=== PATIENT | male | born 1960 | race Caucasian/White ===

== ENCOUNTER 2017-02-02 09:54 | Emergency (ER) | payer OTHER ==
[~2017-02-02] VITALS: Ht 175.3 cm; Wt 108.9 kg
[~2017-02-02 09:54] MED LIST: BACTROBAN2% TP; CLINDAMYCIN HC300 MG PO; HIBICLENS118 ML TOP; LAC PO; PERIOGARD473 ML PO
[2017-02-02 11:30] VITALS: BP 144/86
== END 2017-02-02 11:39 | disposition other institution (70) ==
LOC: ED 09:54
DX: Z02.89 Encounter for other administrative examinations (principal); M79.1 Myalgia; E11.9 Type 2 diabetes mellitus without complications; I10 Essential (primary) hypertension; F19.90 Other psychoactive substance use, unspecified, uncomplicated; I73.9 Peripheral vascular disease, unspecified; M19.90 Unspecified osteoarthritis, unspecified site; F17.210 Nicotine dependence, cigarettes, uncomplicated; Z71.6 Tobacco abuse counseling
CPT/HCPCS: 99406

== ENCOUNTER 2017-02-02 09:54 | Emergency (ER) | payer OTHER | END 2017-02-02 11:39 | disposition other institution (70) | LOC: ED 09:54 | DX: Z02.89 Encounter for other administrative examinations (principal); I10 Essential (primary) hypertension; M79.1 Myalgia; F19.90 Other psychoactive substance use, unspecified, uncomplicated; M19.90 Unspecified osteoarthritis, unspecified site; E11.9 Type 2 diabetes mellitus without complications; I73.9 Peripheral vascular disease, unspecified; F17.210 Nicotine dependence, cigarettes, uncomplicated; Z71.6 Tobacco abuse counseling ==

== ENCOUNTER 2017-06-24 00:11 | Emergency (ER) | payer OTHER ==
[~2017-06-24] VITALS: Ht 172.7 cm; Wt 99.8 kg
[2017-06-24 00:40] VITALS: BP 152/92
== END 2017-06-24 00:40 | disposition other institution (70) ==
LOC: ED 00:11
DX: Z02.89 Encounter for other administrative examinations (principal); I10 Essential (primary) hypertension; E11.9 Type 2 diabetes mellitus without complications; M19.90 Unspecified osteoarthritis, unspecified site

== ENCOUNTER 2018-01-22 22:18 | Inpatient (IN) | payer OTHER ==
[~2018-01-22] VITALS: Ht 175.3 cm; Wt 122.1 kg
[2018-01-22 23:57] LABS: BASOPHIL % 0.1 % (0-2); PLATELET COUNT 179 x10^3mcL (130-400)
[2018-01-22 23:59] LABS: RED CELL DISTRIBUTION WIDTH 14.9 % (11.5-14.5)
[2018-01-23] VITALS (7 sets, daily range): BP systolic 114–149; BP diastolic 63–81; Ht 175.3 cm; Wt 122.1 kg
[2018-01-23 00:06] LABS: CALCIUM 9.7 mg/dL (8.5-10.1); CARBON DIOXIDE 27.6 mmol/L (21-32); CREATININE SERUM 1.6 mg/dL (0.7-1.3); POTASSIUM SERUM 3.2 mmol/L (3.5-5.1)
[2018-01-23 00:22] LABS: BILIRUBIN TOTAL 0.7 mg/dL (0.20-1.00); TOTAL PROTEIN, SERUM 7.7 g/dL (6.4-8.2)
[2018-01-23 00:23] LABS: ALBUMIN 2.5 g/dL (3.4-5.0)
[2018-01-23 00:40] LABS: T3 TOTAL 0.97 ng/mL
[2018-01-23 00:52] LABS: PHOSPHOROUS 3.6 mg/dL (2.5-4.9)
[2018-01-23 01:01] LABS: FREE T4 1.71 ng/dL (0.76-1.46); FREE THYROXINE INDEX 3.7 ug/dL (1.4-4.5); T4(THYROXINE) 10.1 ug/dL (4.7-13.3)
[2018-01-23 03:26] LABS: BASOPHIL % 0.2 % (0-2); PLATELET COUNT 169 x10^3mcL (130-400)
[2018-01-23 03:30] LABS: RED CELL DISTRIBUTION WIDTH 14.6 % (11.5-14.5)
[2018-01-23 04:02] LABS: CALCIUM 9.6 mg/dL (8.5-10.1); CREATININE SERUM 1.4 mg/dL (0.7-1.3); PHOSPHOROUS 4.2 mg/dL (2.5-4.9)
[2018-01-23 04:04] LABS: CHOLESTEROL/HDL RATIO 5.9
[2018-01-23 08:34] LABS: microscopic required? YES; urine erythrocyte TRACE (NEGATIVE)
[2018-01-23 10:29] LABS: AMPHETAMINE QUAL UR POSITIVE (See below)
[2018-01-23 17:57] LABS: CALCIUM 8.6 mg/dL (8.5-10.1); CARBON DIOXIDE 27.3 mmol/L (21-32); CHLORIDE SERUM 102 mmol/L (98-107); CREATININE SERUM 1.1 mg/dL (0.7-1.3); GFR1 > 60 mL/min; GLUCOSE SERUM 123 mg/dL (74-106); POTASSIUM SERUM 3.4 mmol/L (3.5-5.1); SODIUM SERUM 136 mmol/L (136-145)
[2018-01-24 05:41] VITALS: BP 128/70
[2018-01-24 06:11] LABS: PLATELET COUNT 174 x10^3mcL (130-400)
[2018-01-24 06:19] LABS: CALCIUM 8.4 mg/dL (8.5-10.1); CARBON DIOXIDE 28.2 mmol/L (21-32); CHLORIDE SERUM 100 mmol/L (98-107); CREATININE SERUM 0.9 mg/dL (0.7-1.3); GFR1 > 60 mL/min; GLUCOSE SERUM 105 mg/dL (74-106); POTASSIUM SERUM 3.2 mmol/L (3.5-5.1); SODIUM SERUM 137 mmol/L (136-145)
[2018-01-24 07:09] LABS: BASOPHIL % 0 % (0-2); RED CELL DISTRIBUTION WIDTH 14.9 % (11.5-14.5)
[2018-01-24 09:46] VITALS: BP 135/60
[2018-01-24 12:26] LABS: CALCIUM 8.3 mg/dL (8.5-10.1); CARBON DIOXIDE 32.3 mmol/L (21-32); CHLORIDE SERUM 99 mmol/L (98-107); GFR1 > 60 mL/min; GLUCOSE SERUM 133 mg/dL (74-106); POTASSIUM SERUM 3.2 mmol/L (3.5-5.1); SODIUM SERUM 136 mmol/L (136-145)
[2018-01-24 13:19] VITALS: BP 116/72
[2018-01-24 18:38] VITALS: BP 128/69
[2018-01-24 21:14] VITALS: BP 134/63; BP 34/63
[2018-01-25 05:18] VITALS: BP 134/76
[2018-01-25 06:48] LABS: BASOPHIL % 0.4 % (0-2); PLATELET COUNT 203 x10^3mcL (130-400); RED CELL DISTRIBUTION WIDTH 15.1 % (11.5-14.5)
[2018-01-25 07:39] LABS: CALCIUM 9.3 mg/dL (8.5-10.1); CARBON DIOXIDE 30.7 mmol/L (21-32); CHLORIDE SERUM 97 mmol/L (98-107); GFR1 > 60 mL/min; GLUCOSE SERUM 109 mg/dL (74-106); POTASSIUM SERUM 4.1 mmol/L (3.5-5.1); SODIUM SERUM 134 mmol/L (136-145)
[2018-01-25] MEDS ORDERED: LEVOFLOXACIN500 M1 PO (08:46)
[2018-01-25] MEDS ORDERED: CLEOCIN HCL300 MG PO (08:47)
[2018-01-25] MEDS ORDERED: LAC PO (08:48)
[2018-01-25] MEDS ORDERED: HIBICLENS118 ML TOP (08:50)
[2018-01-25] MEDS ORDERED: BACTROBAN21 (08:51)
[2018-01-25] MEDS ORDERED: LASIX20 MG PO (08:53)
[2018-01-25 09:41] VITALS: BP 124/65
[2018-01-25 11:47] VITALS: BP 132/72
[2018-01-25 13:17] VITALS: BP 132/72
== END 2018-01-25 16:43 | disposition home or self-care (01) | DRG 720 ==
LOC: ED 22:18 → DU 23:38
PROVIDERS: Emergency Medicine; Family Medicine
DX: A41.9 Sepsis, unspecified organism (principal); N17.0 Acute kidney failure with tubular necrosis; E43 Unspecified severe protein-calorie malnutrition; L03.115 Cellulitis of right lower limb; E86.0 Dehydration; E87.1 Hypo-osmolality and hyponatremia; E87.6 Hypokalemia; F15.10 Other stimulant abuse, uncomplicated; I10 Essential (primary) hypertension; I87.8 Other specified disorders of veins; E78.5 Hyperlipidemia, unspecified; F17.210 Nicotine dependence, cigarettes, uncomplicated; E66.9 Obesity, unspecified; Z68.32 Body mass index [BMI] 32.0-32.9, adult; E11.9 Type 2 diabetes mellitus without complications; M19.90 Unspecified osteoarthritis, unspecified site; L03.116 Cellulitis of left lower limb; Z82.49 Family history of ischemic heart disease and other diseases of the circulatory system; Z83.3 Family history of diabetes mellitus; Z84.89 Family history of other specified conditions
CPT/HCPCS: 83880; 84439; J1644; J1885; J1940; J1956; J2543; J3480; J3490; Q0092